=== PATIENT | female | born 1975 | race Caucasian/White ===

== ENCOUNTER 2018-10-11 13:11 | Emergency (ER) | payer OTHER ==
[~2018-10-11] VITALS: Ht 162.6 cm; Wt 57.7 kg
[2018-10-11 13:59] VITALS: BP 105/67
== END 2018-10-11 14:10 | disposition home or self-care (01) ==
LOC: EMS 13:12
DX: S61.212D Laceration without foreign body of right middle finger without damage to nail, subsequent encounter (principal); Z98.51 Tubal ligation status; X58.XXXD Exposure to other specified factors, subsequent encounter

== ENCOUNTER 2019-01-28 19:35 | Emergency (ER) | payer OTHER ==
[~2019-01-28] VITALS: Ht 162.6 cm; Wt 57.7 kg
[2019-01-28] MEDS ORDERED: KETOROLAC TROMETHAMINE 30 MG/ML VIAL IVP ONE (22:00)
[2019-01-28] MEDS ORDERED: SODIUM CHLORIDE 0.9% 1,000 ML IV ONE (22:00)
[2019-01-28] MEDS ORDERED: ONDANSETRON HCL 4 MG/2 ML VIAL IVP ONE (22:00)
[2019-01-28] MEDS ORDERED: DiphenhydrAMINE HCL 50 MG/ML VIAL IVP ONE (22:00)
[2019-01-28 23:47] VITALS: BP 125/73
== END 2019-01-28 23:59 | disposition home or self-care (01) ==
LOC: EMS 19:37
DX: G43.909 Migraine, unspecified, not intractable, without status migrainosus (principal); J40 Bronchitis, not specified as acute or chronic
CPT/HCPCS: 71046; 81025; 96374; 96375; 99283; J1200; J1885; J2405; J7030

== ENCOUNTER 2025-04-29 19:06 | Emergency (ER) | payer OTHER ==
[~2025-04-29] VITALS: Ht 162.6 cm; Wt 81.0 kg
[2025-04-29 19:38] VITALS: TEMP 97.9
[2025-04-29 20:20] LABS: PLATELET COUNT (AUTO) 281 K/uL (150-450); RED BLOOD CELL COUNT(AUTO) 4.08 MIL/uL (4.00-5.20); RED CELL DISTRIBUTION WIDTH 13.7 % (11.5-14.5); WHITE BLOOD COUNT (AUTO) 4.8 K/uL (4.5-11.0)
[2025-04-29 20:33] LABS: CALCIUM, TOTAL 9.3 mg/dL (8.8-10.5); CREATININE 0.73 mg/dL (0.60-1.30); GLOMERULAR FILTR. RATE CALC > 60 mL/min (>60); GLUCOSE,RANDOM 90 mg/dL (70-110); SODIUM SERUM 142 mmol/L (136-145); UREA NITROGEN, BLOOD 13 mg/dL (7-18)
[2025-04-29 20:40] LABS: HCG,QUANTITATIVE 5 mIU/mL (0-6)
[2025-04-29 21:06] LABS: ASPARTATE AMINOTRANSFERASE 17 U/L (15-37); TOTAL PROTEIN, SERUM 7.3 g/dL (6.4-8.2)
[2025-04-29 21:29] LABS: APPEARANCE,URINE CLEAR (CLEAR); GLUCOSE, URINE (UA) NEGATIVE (NEGATIVE); LEUKOCYTE ESTERASE ,URINE LARGE (NEGATIVE); NITRATE,URINE NEGATIVE (NEGATIVE); OCCULT BLOOD,URINE NEGATIVE (NEGATIVE); SPECIFIC GRAVITIY, URINE 1.009 (1.003-1.030)
[2025-04-29 21:38] LABS: SQUAMOUS EPITHELIAL CELL,UR Few /LPF (None Seen)
[2025-04-29] MEDS ORDERED: POLY119P3 PO (22:23)
[2025-04-29] MEDS ORDERED: CEPH-558 PO (22:24)
[2025-04-29] MEDS: CEPHALEXIN MONOHYDRATE 500 MG CAPSULE PO ONE (22:31)
[2025-04-29 23:40] VITALS: BP 123/77; PULSE 76; RESP 15; O2SAT 98
== END 2025-04-29 23:45 | disposition home or self-care (01) ==
LOC: EMS 19:06
DX: N39.0 Urinary tract infection, site not specified (principal); R10.31 Right lower quadrant pain; M54.9 Dorsalgia, unspecified; G89.29 Other chronic pain; Z98.51 Tubal ligation status; Z98.890 Other specified postprocedural states
CPT/HCPCS: 74018; 76705; 76856; 80048; 80076; 81001; 83690; 84702; 85025; 87086; 99284; 36415-L1; 36415-TC